=== PATIENT | male | born 1970 | race Caucasian/White ===

== ENCOUNTER 2024-09-02 07:38 | Emergency (ER) | payer OTHER, SELFPAY ==
[2024-09-02] VITALS (15 sets, daily range): BP systolic 120–177; BP diastolic 81–109; PULSE 62–96; RESP 13–26; TEMP 36.6; O2SAT 95–100; BMI 40.8
--- NOTE | 2024-09-02 07:45 | ED_ITS ---
HPI - Chest Pain General Chief Complaint: Chest Pain Stated Complaint: thinks heart attack Time Seen by Provider: 09/02/24 07:42 History of Present Illness HPI narrative: 54-year-old male with no known coronary artery disease, since 644 this morning has had intermittent brief episodes chest discomfort radiating to both arms, initial fast heart rate like sensation, took baby aspirin 2 tablets, has had 3 of these transient episodes before coming POV driven by to the emergency department. No prior cardiac stress testing or imaging recalled. Cardiac risk factors has cholesterol problems on medication, denies diabetes history, denies smoking, denies hypertension, some family history CAD in a grandfather who had diabetes. No recent cough, fevers, chills. No recent change in activities, no new medications, no change in coffee intake or other bodo-[id number] substances. Denies history of blood clots to legs or lungs, no leg pain or swelling symptoms. Related Data Allergies Allergy/AdvReac Type Severity Reaction Status Date / Time No Known Drug Allergies Allergy Verified 09/02/24 08:01 Review of Systems Review of Systems Narrative: see HPI Exam Narrative Exam Narrative: GENERAL: Well-developed patient, in mild distress. HEAD: Atraumatic. Normocephalic. EYES: Pupils equal round and reactive. Extraocular motions intact. No scleral icterus. No injection or drainage. ENT: Nose without bleeding, purulent drainage. Throat without erythema, tonsillar hypertrophy or exudate. Airway patent. NECK: Trachea midline. Non tender CARDIOVASCULAR: Regular rate and rhythm without murmurs, gallops, or rubs. RESPIRATORY: Clear to auscultation. Breath sounds equal bilaterally. No wheezes, rales, or rhonchi. No chest wall tenderness. GASTROINTESTINAL: Abdomen soft, non-tender, nondistended. EXTREMITIES: No edema or joint tenderness. BACK: Nontender without deformity or crepitance. No flank tenderness. NEURO: AOx3. Motor functions grossly nonfocal SKIN: No rash or erythema of visible areas Initial Vital Signs Initial Vital Signs: Vital Signs Pulse Rate 96 H 09/02/24 07:43 Blood Pressure 177/109 H 09/02/24 07:43 Pulse Oximetry 98 09/02/24 07:43 Course Orders Ordered: ED Orders 09/02/24 10:44 CT angio chest abdomen pelvis Stat 09/02/24 12:30 Troponin I Stat Discontinued Medications Aspirin (Aspirin 81 Mg Chew Tab) 324 mg PO NOW ONE Stop: 09/02/24 07:45 Last Admin: 09/02/24 08:52 Dose: Not Given Documented By: SHYLA Aspirin (Aspirin Ec 81 Mg Tablet) 162 mg PO NOW ONE Stop: 09/02/24 08:29 Last Admin: 09/02/24 08:52 Dose: 162 mg Documented By: SHYLA Famotidine (Famotidine 20 Mg/2 Ml Vial) 20 mg IV NOW ANGELINE Last Admin: 09/02/24 08:52 Dose: 20 mg Documented By: SHYLA Sodium Chloride (Normal Saline 0.9%) 1,000 mls @ 1,000 mls/hr IV BOLUS ONE Stop: 09/02/24 11:44 Last Infusion: 09/02/24 12:30 Dose: Infused Documented By: Admin: 09/02/24 11:13 Dose: 1,000 mls/hr Documented By: ELMER Vital Signs Vital signs: Vital Signs - 8 hr 09/02/24 11:30 09/02/24 12:00 09/02/24 12:28 Pulse Rate 62 69 69 Respiratory Rate 13 26 H 20 Blood Pressure Pulse Oximetry 100 100 99 Oxygen Delivery Method 09/02/24 12:28 09/02/24 12:30 09/02/24 12:30 Pulse Rate 68 Respiratory Rate 23 Blood Pressure 134/85 124/81 Pulse Oximetry 99 Oxygen Delivery Method 09/02/24 13:00 09/02/24 13:00 Pulse Rate 75 Respiratory Rate 23 Blood Pressure 120/83 Pulse Oximetry 99 Oxygen Delivery Method Room Air MDM - Chest Pain Lab Data Attestation: I reviewed the patient's lab results. Lab results narrative: White blood cell count 8500, hemoglobin 14.9, platelets adequate. Basic metabolic panel unremarkable. Alkaline phosphatase 135 slight elevation, other liver functions normal. Lipase normal. Troponin negative/unmeasurable. 09/02/24 08:03 09/02/24 08:03 Labs: Lab Results 09/02/24 09/02/24 09/02/24 Range/Units 08:03 10:10 12:30 WBC 8.5 (4.5-11.0) X10^3/uL RBC 5.04 (4.5-5.9) X10^6/uL Hgb 14.9 (13.5-17.5) g/dL Hct 43.8 (41-53) % MCV 86.9 (80-100) fL MCH 29.6 (26-34) PG MCHC 34.0 (30-36) % RDW 14.1 (11.6-14.8) % Plt Count 260 (150-400) X10^3/uL Neut % (Auto) 69.1 (50-75) % Lymph % (Auto) 23.4 L (25-40) % [place] % (Auto) 5.8 (3-14) % Eos % (Auto) 1.4 L (2-4) % Baso % (Auto) 0.3 (0-2) % Neut # (Auto) 5900 (7373-2426) /uL Lymph # (Auto) 2000 (0168-1251) /uL [place] # (Auto) 500 (0-900) /uL Eos # (Auto) 100 (0-450) /uL Baso # (Auto) 0 (0-100) /uL D-Dimer 616 H (<500) ng/ml Sodium 139 (137-145) mmol/L Potassium 4.0 (3.4-5.1) mmol/L Chloride 106 (98-107) mmol/L Carbon Dioxide 28 (22-32) mmol/L BUN 13 (9-20) mg/dL Creatinine 0.90 (0.66-1.25) mg/dL Estimated GFR > 60 (>60) mL/min BUN/Creatinine Ratio 14.4 (6-22) Glucose 112 H (70-100) mg/dL Calcium 8.9 (8.4-10.2) mg/dL Total Bilirubin 0.6 (0.2-1.3) mg/dL AST 32 (17-59) IU/L ALT 33 (<50) IU/L Alkaline Phosphatase 135 H (38-126) U/L Total Creatine Kinase 95 (55-170) U/L Troponin I < 0.012 < 0.012 < 0.012 (0.01-0.034) ng/mL Total Protein 7.2 (6.3-8.2) g/dL Albumin 4.0 (3.5-5.0) g/dL Globulin 3.2 (1.7-4.1) g/dL Albumin/Globulin Ratio 1.3 (1.0-2.8) Lipase 47 (23-300) U/L Imaging Data Chest x-ray: Radiologist's Impression: Close Chest X-Ray (Signed) Young Rojas - 09/02/24 Launch?Image [address] [address] XRay Report Signed Patient: Guy Luque MR#: [id number] : 1970 Acct:[id number] Age/Sex: 54 / M Date of Service: 09/02/24 Loc: ED Accession Number: [id number] Procedure: XR chest 1V Ordering Provider: Noah Olivo MD PROCEDURE: XR CHEST 1V INDICATIONS: chest pain TECHNIQUE: One view of the chest was acquired. COMPARISON: None. FINDINGS: Surgical changes and devices: None. Lungs and pleura: Lungs are clear. No pleural effusions or pneumothorax. Mediastinum: Mediastinal contours appear normal. Heart size is normal. Bones and chest wall: No suspicious bony lesions. Overlying soft tissues appear unremarkable. IMPRESSION: No acute cardiopulmonary abnormality is seen. Dictated by: Young Rojas M.D. on 09/02/2024 at 8:12 Approved by: Young Rojas M.D. on 09/02/2024 at 8:12 CT angiogram chest abdomen pelvis: Radiologist's Impression: [address] [address] [address] Scan Report Signed Patient: Guy Luque MR#: [id number] : 1970 Acct:[id number] Age/Sex: 54 / M Date of Service: 09/02/24 Loc: ED Accession Number: [id number] Procedure: CT angio chest abdomen pelvis Ordering Provider: Noah Olivo MD PROCEDURE: CT ANGIO CHEST ABDOMEN PELVIS INDICATIONS: chest pain radiating to arms, Dd+, aortogram TECHNIQUE: Precontrast 5 mm thick sections acquired from the lung apices to the iliac crests. After the administration of intravenous contrast, 2.5 mm thick sections again acquired from the lung apices to the iliac crests. Maximum intensity projection (MIP) oblique sagittal and coronal reformats were then acquired. For radiation dose reduction, the following was used: automated exposure control. COMPARISON: None. FINDINGS: Image quality: Diagnostic. AORTA: No aortic aneurysm. No acute aortic syndrome. Mild atherosclerotic calcifications. CHEST: Lower Neck: No enlarged lymph nodes. Thyroid: No thyroid nodules which require sonographic evaluation. Axillae: No enlarged lymph nodes. Chest Wall: Unremarkable. Lungs and Pleura: No pneumothorax or pleural effusions. Right lower lobe nodule measuring 4 millimeters (6/211). Scattered additional nodules measuring 5 millimeters or less. Scattered calcified granulomata are noted. Heart: Heart size is normal. Small pericardial effusion. Thoracic Vessels: Pulmonary arteries demonstrate normal size. Mediastinum and Shelbi: Calcified left hilar lymph nodes. Esophagus: No wall thickening. No hiatal hernia. ABDOMEN: Liver: No solid mass. Gallbladder: Cholelithiasis without gallbladder inflammation. Biliary ducts: No biliary dilation. Pancreas: No ductal dilation. Spleen: Size is within normal limits. Adrenal Glands: Indeterminate right adrenal nodule measuring 2.5 centimeters. Kidneys and Ureters: No hydronephrosis. No solid mass. No complex renal cystic lesion which requires follow up. Stomach and Bowel: Normal colonic caliber, without significant wall thickening. Few diverticula without evidence of diverticulitis. Normal appendix. Peritoneum: No abnormal intraperitoneal fluid. No free air. Ventral Wall: No hernia. Abdominal Nodes: No retroperitoneal or mesenteric adenopathy by size criteria. Vessels: Inferior vena cava is normal in size. PELVIS: Pelvic Organs: Unremarkable. Bladder: Unremarkable. Pelvic Nodes: No enlarged lymph nodes. Miscellaneous: No inguinal hernias are seen. Bones: Multilevel degenerative changes of the spine with S-shaped scoliotic curvature. IMPRESSION: 1. No evidence of acute aortic syndrome. 2. No acute findings within the chest, abdomen or pelvis. 3. Multiple calcified pulmonary granulomata and left hilar calcified lymph nodes. Findings are consistent with sequela of prior granulomatous disease. 4. Additional scattered pulmonary nodules measuring 5 millimeters or less, may be associated with prior granulomatous disease. Consider follow-up chest CT in 1 year. 5. Indeterminate right adrenal nodule measuring 2.5 centimeters. Nonurgent adrenal protocol CT or MRI can be obtained for further evaluation. 6. Few diverticula without evidence of acute diverticulitis. 7. Cholelithiasis without evidence of acute cholecystitis. Dictated by: Dao Guerrero M.D. on 09/02/2024 at 11:45 Approved by: Dao Guerrero M.D. on 09/02/2024 at 11:57 ECG Data Attestation: I personally reviewed and interpreted this ECG as follows: Interpretation: Normal sinus rhythm with rate of 77, no obvious ST segment elevation or depression changes. Flat T-waves leads 3 and F, upright in lead 2. WV 146, QRS 86, QTC 423. MDM Narrative Medical decision making narrative: 54-year-old male with intermittent chest discomfort this morning at rest, no known coronary artery disease. Afebrile, sirs screen negative, no tenderness on exam. Screening chest x-ray negative. Screening EKG unremarkable. Initial troponin negative/unmeasurable. We will obtain interval troponin. D-dimer pending D-dimer positive, GFR favorable, CT angiogram chest abdomen pelvis ordered. Interval troponin also negative/unmeasurable. Await results of CT angiogram study. Anticipate discharge if negative. Patient/ aware of plan CT angiogram chest abdomen and pelvis shows no acute changes. Normal aorta also noted. Incidental finding pulmonary granulomata and left hilar lymph nodes noted. Scattered pulmonary nodules noted. Diverticula without diverticulitis noted. Cholelithiasis without cholecystitis noted. Incidental findings and negative study otherwise discussed with patient. Copy of the report given to patient. Advised further workup as an outpatient, Cardiology consultation as an outpatient for now, trial of antacid while awaiting cardiology workup. Discharged home with family. Return precautions discussed. Discharge Plan Departure Patient Disposition: Home Clinical Impression: Chest pain, Lung nodules, Cholelithiasis, Diverticulosis, Lesion of adrenal gland Activity Restrictions/Additional Instructions: Intermittent chest discomfort of unclear cause. EKG and serial blood tests not suggestive of heart attack at this time. D-dimer was slightly positive, we further evaluated chest abdomen and pelvis with angiogram study. No acute changes with the aorta or organs noted, per radiologist's report. There were number of incidental findings: Lymph nodes in the hilar region of the long noted that could be further evaluated in follow up, lung nodules incidentally noted can be followed up as an outpatient, adrenal nodule can be followed up as an outpatient. You also had diverticula without inflammation, no acute diverticulitis of the colon at this time. Gallstones noted on CT scanning without inflammatory changes of the gallbladder. Further workup as an outpatient for now. Consider Cardiology evaluation. Trial of antacids for now, you stated that you would try omeprazole [id number] for now. Discharged home. Return to this/nearest emergency department for any change worsening symptoms or any concerns prior Local [employer]celain enamel [employer] contact clinic information provided, though you might require referral from your regular primary care provider. Referrals: Rosa Swenson MD [Physician] - Stand Alone Forms: Patient Portal/API/Survey
--- NOTE | 2024-09-02 07:46 | EKG_ITS ---
[id number] [address] Test Date: 2024-09-02 Pat Name: Guy Luque Department: Room: Gender: Male Acting Manager: ROGELIO : 1970 Requested By: Order Number: [id number] Reading MD: Cj Monzon Measurements Intervals [place] Rate: 77 P: 38 MI: 146 QRS: 1 QRSD: 86 T: 49 QT: 374 QTc: 423 Interpretive Statements Normal sinus rhythm Nonspecific ST abnormality Electronically Signed On 09-02-2024 8:20:47 PST by Cj Monzon
[2024-09-02 08:10] LABS: Add Manual Diff / Slide Review NO; Basophils Absolute Auto 0 /uL (0-100); Basophils Percent Auto 0.3 % (0-2); Eosinophils Absolute Auto 100 /uL (0-450); Eosinophils Percent Auto 1.4 % (2-4); Hematocrit 43.8 % (41-53); Hemoglobin 14.9 g/dL (13.5-17.5); Lymphocytes Absolute Auto 2000 /uL (1100-4500); Lymphocytes Percent Auto 23.4 % (25-40); Mean Corpuscular Hemoglobin 29.6 PG (26-34); Mean Corpuscular Volume 86.9 fL (80-100); Monocytes Absolute Auto 500 /uL (0-900); Monocytes Percent Auto 5.8 % (3-14); Neutrophils Absolute Auto 5900 /uL (1500-7000); Neutrophils Percent Auto 69.1 % (50-75); Platelet Count 260 X10^3/uL (150-400); Red Blood Cell Count 5.04 X10^6/uL (4.5-5.9); Red Cell Distribution Width 14.1 % (11.6-14.8); White Blood Cell Count 8.5 X10^3/uL (4.5-11.0)
[2024-09-02 08:20] LABS: Alanine Aminotransferase 33 IU/L (<50); Albumin Globulin Ratio 1.3 (1.0-2.8); Alkaline Phosphatase 135 U/L (38-126); Aspartate Aminotransferase 32 IU/L (17-59); BUN Creatinine Ratio 14.4 (6-22); Bilirubin Total 0.6 mg/dL (0.2-1.3); Blood Urea Nitrogen 13 mg/dL (9-20); Calcium 8.9 mg/dL (8.4-10.2); Carbon Dioxide 28 mmol/L (22-32); Chloride 106 mmol/L (98-107); Creatine Kinase 95 U/L (55-170); Estimated Glomerular Filt Rate > 60 mL/min (>60); Globulin 3.2 g/dL (1.7-4.1); Glucose 112 mg/dL (70-100); HEMOLYSIS < 15 (0-50); Lipase 47 U/L (23-300); Sodium 139 mmol/L (137-145); Total Protein 7.2 g/dL (6.3-8.2)
[2024-09-02 08:32] LABS: Troponin I < 0.012 ng/mL (0.01-0.034)
[2024-09-02] MEDS: FAMOTIDINE 20 MG/2 ML VIAL IV (08:52)
[2024-09-02] MEDS: ASPIRIN EC 81 MG TABLET 162 MG PO (08:52)
[2024-09-02 10:36] LABS: D Dimer 616 ng/ml (<500)
[2024-09-02 10:41] LABS: Troponin I < 0.012 ng/mL (0.01-0.034)
--- NOTE | 2024-09-02 10:44 | DI.CT.S_ITS ---
PROCEDURE: CT ANGIO CHEST ABDOMEN PELVIS INDICATIONS: chest pain radiating to arms, Dd+, aortogram TECHNIQUE: Precontrast 5 mm thick sections acquired from the lung apices to the iliac crests. After the administration of intravenous contrast, 2.5 mm thick sections again acquired from the lung apices to the iliac crests. Maximum intensity projection (MIP) oblique sagittal and coronal reformats were then acquired. For radiation dose reduction, the following was used: automated exposure control. COMPARISON: None. FINDINGS: Image quality: Diagnostic. AORTA: No aortic aneurysm. No acute aortic syndrome. Mild atherosclerotic calcifications. CHEST: Lower Neck: No enlarged lymph nodes. Thyroid: No thyroid nodules which require sonographic evaluation. Axillae: No enlarged lymph nodes. Chest Wall: Unremarkable. Lungs and Pleura: No pneumothorax or pleural effusions. Right lower lobe nodule measuring 4 millimeters (6/211). Scattered additional nodules measuring 5 millimeters or less. Scattered calcified granulomata are noted. Heart: Heart size is normal. Small pericardial effusion. Thoracic Vessels: Pulmonary arteries demonstrate normal size. Mediastinum and Shelbi: Calcified left hilar lymph nodes. Esophagus: No wall thickening. No hiatal hernia. ABDOMEN: Liver: No solid mass. Gallbladder: Cholelithiasis without gallbladder inflammation. Biliary ducts: No biliary dilation. Pancreas: No ductal dilation. Spleen: Size is within normal limits. Adrenal Glands: Indeterminate right adrenal nodule measuring 2.5 centimeters. Kidneys and Ureters: No hydronephrosis. No solid mass. No complex renal cystic lesion which requires follow up. Stomach and Bowel: Normal colonic caliber, without significant wall thickening. Few diverticula without evidence of diverticulitis. Normal appendix. Peritoneum: No abnormal intraperitoneal fluid. No free air. Ventral Wall: No hernia. Abdominal Nodes: No retroperitoneal or mesenteric adenopathy by size criteria. Vessels: Inferior vena cava is normal in size. PELVIS: Pelvic Organs: Unremarkable. Bladder: Unremarkable. Pelvic Nodes: No enlarged lymph nodes. Miscellaneous: No inguinal hernias are seen. Bones: Multilevel degenerative changes of the spine with S-shaped scoliotic curvature. IMPRESSION: 1. No evidence of acute aortic syndrome. 2. No acute findings within the chest, abdomen or pelvis. 3. Multiple calcified pulmonary granulomata and left hilar calcified lymph nodes. Findings are consistent with sequela of prior granulomatous disease. 4. Additional scattered pulmonary nodules measuring 5 millimeters or less, may be associated with prior granulomatous disease. Consider follow-up chest CT in 1 year. 5. Indeterminate right adrenal nodule measuring 2.5 centimeters. Nonurgent adrenal protocol CT or MRI can be obtained for further evaluation. 6. Few diverticula without evidence of acute diverticulitis. 7. Cholelithiasis without evidence of acute cholecystitis. Dictated by: Dao Guerrero M.D. on 09/02/2024 at 11:45 Approved by: Dao Guerrero M.D. on 09/02/2024 at 11:57
[2024-09-02] MEDS: SODIUM CHLORIDE 0.9% 1,000 ML 1000 ML IV (11:13)
[2024-09-02 12:58] LABS: Troponin I < 0.012 ng/mL (0.01-0.034)
== END 2024-09-02 14:04 | disposition home or self-care (01) ==
PROVIDERS: Emergency Provider Emergency Medicine
DX: R07.9 Chest pain, unspecified (principal); R91.8 Other nonspecific abnormal finding of lung field; K80.20 Calculus of gallbladder without cholecystitis without obstruction; K57.90 Diverticulosis of intestine, part unspecified, without perforation or abscess without bleeding; E27.8 Other specified disorders of adrenal gland
CPT/HCPCS: 36415; 71045; 71275; 74174; 80053; 82550; 83690; 84484; 85025; 85379; 93005; 96361; 96374; 99284; Q9967